=== PATIENT | female | born 1970 | race American Indian/Alaskan Native ===

== ENCOUNTER 2017-09-21 08:40 | Outpatient (CLI) | payer BC ==
--- NOTE | 2017-09-21 16:38 | Mammography Report ---
BILATERAL DIGITAL DIAGNOSTIC MAMMOGRAM with CAD and LEFT BREAST ULTRASOUND: 09/21/17 CLINICAL: Left lump. COMPARISON:02/07/13 FINDINGS: The breasts are heterogeneously dense, which may obscure small masses.No mass, architectural distortion or suspicious calcifications . No mammographic finding at a left periareolar palpable marker. Ultrasound of the left breast demonstrated a few prominent ducts at 12 o'clock near the areola but no mass or cyst to correlate with what she feels that the lump. I examined the breast myself and I scanned the breast myself and found nothing suspicious. IMPRESSION: Probably benign left duct ectasia. BI-RADS CATEGORY: 3 - - Probably Benign RECOMMENDATION: Reevaluation of the symptomatic area in the left breast with ultrasound in three months . ACR BI-RADS MAMMOGRAPHIC CODES: 0 = Needs additional imaging evaluation; 1 = Negative; 2 = Benign; 3 = Probably benign; 4 = Suspicious; 5 = Malignant; 6 = Known biopsy-proven malignancy COMMENT: 1. Dense breast tissue, i.e., adenosis, fibrocystic changes, etc., may obscure an underlying neoplasm. 2. Approximately 10% of cancers are not detected with mammography. 3. A negative mammography report should not delay biopsy if a clinically suspicious mass is present. COMMENT: Patient follow-up letters are generated by our [employer] application.
== END 2017-09-21 08:41 | disposition home or self-care (01) ==
LOC: SPVWC 08:40
PROVIDERS: ATTEND Obstetrics & Gynecology
DX: N60.42 Mammary duct ectasia of left breast (principal)
CPT/HCPCS: 76642; G0204; 77066

== ENCOUNTER 2020-11-19 08:16 | Outpatient (CLI) | payer OTHER ==
--- NOTE | 2020-11-19 10:27 | Mammography Report ---
BILATERAL DIGITAL DIAGNOSTIC MAMMOGRAM WITH CAD CONVENTIONAL, 11/19/2020 BILATERAL LIMITED BREAST ULTRASOUND CLINICAL INFORMATION / INDICATION: Bilateral breast lumps and pain. TECHNIQUE: Digital bilateral mammographic imaging was performed. Limited ultrasound was performed. Th is examination was interpreted with the benefit of Computer-Aided Detection (CAD) analysis. COMPARISON: Bilateral mammography 01/28/2011 through 09/21/2017 and bilateral breast ultrasound 7. FINDINGS: Breast Density: There are scattered areas of fibroglandular density. MAMMOGRAPHIC FINDINGS: No dominant mass, suspicious calcifications, or architectural distortion in ei ther breast. Benign-appearing nodularity in the left inferior breast is stable. ULTRASOUND FINDINGS: Targeted ultrasound evaluation was performed of the area of interest. There is a benign-appearing lymph node in the left axilla which measures approximately 7 mm short axis. No ot her abnormality is seen in either breast at the sites of lumpiness and pain. IMPRESSION: No mammographic or sonographic evidence of malignancy. Follow up recommendation: Routine yearly BI-RADS Category 2: Benign. A "normal" or negative report should not discourage follow up or biopsy of a clinically significant f inding. A written summary of these findings will be mailed to the patient. The patient will be entered into a mammography reporting system which will generate a reminder letter for the patient's next appointmen t at the appropriate interval. According to the [employer], yearly mammograms are recommended starting at age 40 and continuing as long as a woman is in good health. Breast MRI is recommended for women with an manjinder roximately 20-25% or greater lifetime risk of breast cancer, including women with a strong family his tory of breast or ovarian cancer and women who have been treated for Hodgkin's disease. Signer Name: Boris Rosario MD Signed: 11/19/2020 10:23 AM Workstation Name: [id number]
== END 2020-11-19 08:17 | disposition home or self-care (01) ==
LOC: MAMMO 08:16
PROVIDERS: ATTEND Internal Medicine
DX: R92.8 Other abnormal and inconclusive findings on diagnostic imaging of breast (principal); N63.0 Unspecified lump in unspecified breast
CPT/HCPCS: 77066